=== PATIENT | male | born 1985 | race Caucasian/White ===

== ENCOUNTER 2020-12-10 14:31 | Emergency (ER) | payer MEDICAID, OTHER, SELFPAY ==
[~2020-12-10] VITALS: Ht 182.9 cm; Wt 83.3 kg
--- NOTE | 2020-12-10 14:58 | NUR ---
CALLED FOR PT. PT NOT IN LOBBY
[2020-12-10 16:02] LABS: BASOPHILS % (AUTO) 1 % (0-1); EOSINOPHILS % (AUTO) 2 % (1-7); LYMPHOCYTES % (AUTO) 22 % (22-44); MEAN CORPUSCULAR HEMOGLOBIN 31.4 pg (27.5-34.5); MEAN CORPUSCULAR HGB CONC 34.5 g/dL (33.2-36.2); MEAN PLATELET VOLUME 7.9 fL (7.4-10.4); MONOCYTES % (AUTO) 7 % (2-9); NEUTROPHILS % (AUTO) 69 % (42-75); PLATELET COUNT 327 x10^3/uL (130-400); RED BLOOD COUNT 5.37 x10^6/uL (4.38-5.82); RED CELL DISTRIBUTION WIDTH 13.5 % (9.4-14.8)
[2020-12-10 16:08] LABS: ALBUMIN 4.2 g/dL (3.4-5.0); ANION GAP 7 mmol/L (5-15); CALCIUM 9.4 mg/dL (8.5-10.1); CHLORIDE 104 mmol/L (98-107)
[2020-12-10 16:11] LABS: ALANINE AMINOTRANSFERASE 28 U/L (12-78); ALKALINE PHOSPHATASE 121 U/L (45-117); BILIRUBIN,TOTAL 0.4 mg/dL (0.2-1.0); CREATININE 0.87 mg/dL (0.7-1.3); TOTAL PROTEIN 7.8 g/dL (6.4-8.2)
--- NOTE | 2020-12-10 17:36 | NUR ---
VSS. AMBULATORY BACK OUT TO LOBBY
--- NOTE | 2020-12-10 20:03 | NUR ---
pt to room from lobby
--- NOTE | 2020-12-10 20:16 | NUR ---
pt came into ed today for flank, abdominal and scrotal pain [id number], denies n/v/d, +burning on urination. bilateral flank discomfort. pt nad, resting on gurney, bed in lowest, rails engaged, call light on lap, provided warm blanket for comfort, ua sent to lab. josé luis.
[2020-12-10 20:27] LABS: MICROSCOPIC NOT IND
--- NOTE | 2020-12-10 21:15 | NUR ---
pt medicated per may for pain. nad, Patient is resting comfortably in bed. Bed in lowest, rails engaged, call light on lap. Vital Signs within normal limits. WCTM.
[2020-12-10] MEDS ORDERED: HYDROcodone/APAP 5/325 TABLET ONE (21:20)
[2020-12-10] MEDS ORDERED: HYDROcodone/APAP 5/325 TABLET PO ONE (21:30)
[2020-12-10 21:42] VITALS: BP 121/71
--- NOTE | 2020-12-10 21:42 | NUR ---
Patient given discharge instructions and they have confirmed that they understand the instructions. Patient ambulatory with steady gait. NAD, all questions answered appropriately, denies additional needs at this time. No personal belongings left in room after discharge.
== END 2020-12-10 21:44 | disposition home or self-care (01) ==
LOC: ED 21:08
DX: N45.1 Epididymitis (principal); R10.30 Lower abdominal pain, unspecified; F17.210 Nicotine dependence, cigarettes, uncomplicated; Z88.0 Allergy status to penicillin
CPT/HCPCS: 36415; 76870; 80053; 81003; 85025; 87491; 87591; 99285